=== PATIENT | female | born 1995 | race Asian ===

== ENCOUNTER 2017-04-23 17:50 | Inpatient (IN) | payer OTHER ==
[2017-04-23 19:37] LABS: ABS Basophils 0 10^3/ul (0-0.2); ABS Eosinophils 0.1 10^3/ul (0-0.6); ABS Lymphocytes 2.4 10^3/ul (1.0-4.8); ABS Monocytes 0.3 10^3/ul (0-0.8); ABS Nucleated RBC 0 10^3/ul; Eosinophil % 1.1 % (0-6); Hematocrit 41 % (35-47); Mean Corpuscular HGB Conc 34 g/dl (31-36); Mean Corpuscular Hemoglobin 30 pg (27-31); Mean Corpuscular Volume 88 fL (80-97); Mean Platelet Volume 8 um3 (7.4-10.4); Nucleated Red Blood Cells % 0.1; Platelet Count 214 10^3/ul (150-450); Red Cell Distribution Width 13 % (10.5-15); White Blood Count 6.8 10^3/ul (3.5-10.8)
[2017-04-23 19:51] LABS: EGFR Non-African American 126.4 (>60)
[2017-04-23 19:54] LABS: Urine Appearance Clear; Urine Blood Negative (Negative); Urine Color Yellow; Urine Ketones Trace (Negative); Urine Protein Negative (Negative); Urine Specific Gravity 1.009 (1.010-1.030); Urine Urobilinogen Negative (Negative)
--- NOTE | 2017-04-23 22:35 | PN ---
Angela Guzman Edward, scribed for Elieser Nobles MD on 04/23/17 at 2233 . Progress Note - Progress Note Date of Service: 04/23/17 Note: After MHU eval by Dr. Barton, I was informed that the pt will be [place] [facility] [place] Dx: depression The documentation as recorded by the scribAngela matthews Edward accurately reflects the service I personally performed and the decisions made by , Elieser Nobles MD.
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
[2017-04-24] MEDS ORDERED: Acetaminophen TAB* 325 MG PO PRN (00:59)
[2017-04-24] MEDS ORDERED: Al Hydrox/Mg Hydrox/Simet LIQ* 30 ML UDC PO PRN (00:59)
[2017-04-24] MEDS ORDERED: diPHENhydraMINE PO* 25 MG PO PRN (01:00)
[2017-04-24] MEDS ORDERED: chlorproMAZINE TAB* 25 MG PO PRN (01:00)
[2017-04-24] MEDS: Vitamin THERAPEUTIC TAB PO SCH (09:20)
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
[2017-04-25 08:32] VITALS: BP 98/74
[2017-04-25] MEDS: Vitamin THERAPEUTIC TAB PO SCH (09:06)
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
== END 2017-04-25 13:10 | disposition home or self-care (01) | DRG 882 ==
LOC: ED 17:50 → BSU 22:57
PROVIDERS: ADMIT Psychiatry & Neurology Psychiatry; ATTEND Psychiatry & Neurology Psychiatry
DX: F43.25 Adjustment disorder with mixed disturbance of emotions and conduct (principal); F50.9 Eating disorder, unspecified; R45.851 Suicidal ideations
CPT/HCPCS: 36415; 80053; 80061; 80307; 80320; 80329; 81003; 81015; 83036; 84443; 84702; 85025; 87086; 99222; 99238; 99284; A9270-GY; G0480